=== PATIENT | female | born 1965 | race Caucasian/White ===

== ENCOUNTER → 2020-09-03 12:26 | Outpatient (CLI) | payer MEDICAID, SELFPAY ==
[2020-09-03 13:23] LABS: Coronavirus 19 IgG Antibody Negative (Negative); Coronavirus 19 IgM Antibody Negative (Negative)
== END ==
PROVIDERS: Visit Provider Internal Medicine Gastroenterology
DX: Z01.812 Encounter for preprocedural laboratory examination (principal); Z11.52 Encounter for screening for COVID-19; Z13.810 Encounter for screening for upper gastrointestinal disorder
CPT/HCPCS: 36415; 86328

== ENCOUNTER 2020-09-05 08:37 | Day surgery (SDC) | payer MEDICARE, SELFPAY ==
[2020-09-01 08:26] VITALS: BMI 29.2
[2020-09-05 09:08] VITALS: BP 165/85; PULSE 66; RESP 16; TEMP 36.2; O2SAT 100
[2020-09-05 09:20] LABS: POC Glucose,Bedside 172 (70-110)
[2020-09-05 10:04] VITALS: O2SAT 97
--- NOTE | 2020-09-05 10:06 | P.PN_ITS ---
[facility] Anesthesia Checklist - Structural Data Admitted From: Home Planned Operative Procedure/s: egd Consent for Planned Operative Procedure(s) Verified: Yes - Airway Assessment C-Spine Mobility Assessed: Yes TMJ Mobility Assessed: Yes Dentition: Good Dentition - Neurological Assessment Level of Consciousness: Awake, Alert, Appropriate - Anesthesia Plan Anesthesia Risk discussed: Yes Anesthesia Plan: Verified ASA Class: III Anesthesia Type: MAC [facility] History I have reviewed the patient's past medical history: Yes Medical History: Reports:: Diabetes Mellitus Type 2, Hyperlipidemia, Hypertension, Myocardial Infarction, Seizures Denies:: Cancer, Diabetes Mellitus Type 1, Internal Pacemaker, MRSA *Have you ever received a pneumonia vaccine?: No *Have you received a flu vaccine this season?: No Anesthesia experience/problems:: none Other Surgeries: No: Pacemaker Amputation: No - *Social History Last grade of school completed: High school graduate Smoking Status: Current every day smoker Tobacco Type: cigarettes # Packs/Day (cigarettes): 1 Alcohol Intake: current Alcohol Intake Frequency:: holidays/special occasions only Substance Use Type: crack/cocaine *Occupational Status:: employed, disabled Housing: apartment Household Members: none *Travel in the last 8 weeks: None Family Hx:: Unable to obtain
--- NOTE | 2020-09-05 10:13 | HMH.PROC ---
[facility] Procedure Note Procedure Note:: Upper Endoscopy Procedure Report: Esophagogastroduodenoscopy with cold biopsies Endoscopost: Carlos Alberto Mcqueen II, MD Referring Physician: VALERI Rojas Date of Procedure: September 05, 2020 Equipment: Olympus GIF 190 standard upper endoscope Sedation: MAC sedation Indications: Mrs. Leblanc is a 55-year-old female with longstanding functional dyspepsia and functional bowel disease. The patient was diagnosed with celiac disease years ago. She reports postprandial abdominal pain and discomfort as well as nausea and diarrhea. She has postprandial bowel urgency with cramps and discomfort. More recently, she has had vertigo. She has had marked bloating with constant nausea and some early satiety. She reports heartburn. She reports no melena, hematochezia, bright red rectal bleeding or hematemesis. She reports no weight loss. Her brother and sister have IBS and diverticulitis. The patient did have an ultrasound of the liver showing steatosis (fatty liver). Her HIDA scan on June 17, 2020 showed a 33% gallbladder ejection fraction. She has had normal liver chemistries. She has seen prior gastroenterologists and has had prior panendoscopy in [place]. Procedure: Prior to the procedure, a history and physical exam was performed, and patient's medications and allergies were reviewed. The risks, benefits and alternatives of the sedation and procedure were discussed with the patient. All questions were answered and informed consent was obtained. The patient was brought to the procedure room. Patient identification and proposed procedure were verified by the physician and the nurse. The patient was placed in a left lateral decubitus position and the scope was passed under direct vision. Throughout the procedure, the patient's blood pressure, pulse, and oxygen saturations were monitored continuously. The upper GI endoscopy was accomplished without difficulty. The patient tolerated the procedure well. Findings: The scope was passed directly into the upper esophagus and advanced to the third portion of the duodenum. The post bulbar duodenum and duodenal bulb were normal with normal mucosa and conniventes. There was no evidence of any scalloping of the conniventes or any clear evidence of celiac disease. Cold biopsies were taken from the duodenum. The scope was withdrawn through a normal duodenal bulb and pylorus into the stomach. There was some bile reflux with moderate linear reactive gastropathy of the antrum. The remainder of the body and fundus of the stomach were grossly normal. Upon retroflexion there was a medium size 2 to 3 cm hiatal hernia. 2 biopsies were taken in the antrum and along the lesser curvature for histology to rule out gastritis and/or H pylori. The scope was then withdrawn into the esophagus. There was no evidence of reflux esophagitis or Frost's. There was no Schatzki's ring. There was tertiary contractions and evidence of mild esophageal dysmotility. The remainder of the esophageal mucosa was normal. Impression: 1. Bile reflux with moderate linear reactive gastropathy of the antrum 2. Nonerosive GERD with mild esophageal dysmotility and medium size 2 to 3 cm hiatal hernia Plan: I will follow-up the biopsies. I do feel that the patient has functional dyspepsia. 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 This is resulting in some maldigestion with colonic fermentation causing bowel irregularity, gassiness, bloating and dyspepsia. We will discuss additional treatment options. I do not feel that celiac disease is present based upon duodenal appearance.
[2020-09-05 10:15] VITALS: BP 167/101; PULSE 75; RESP 18; O2SAT 97
[2020-09-05 10:25] VITALS: BP 142/85; PULSE 74; RESP 18; O2SAT 97
[2020-09-05 10:35] VITALS: BP 138/84; PULSE 70; RESP 18
[2020-09-05 10:50] VITALS: BP 115/80; PULSE 77; RESP 18; O2SAT 96
== END 2020-09-05 11:11 | disposition home or self-care (01) ==
PROVIDERS: PCP Family Medicine; Visit Provider Internal Medicine Gastroenterology
PROC: 0DJ08ZZ Inspection of Upper Intestinal Tract, Via Natural or Artificial Opening Endoscopic (ICD-10-PCS; CPT 43235; principal; 2020-09-05 10:00)
DX: K21.9 Gastro-esophageal reflux disease without esophagitis (principal); K31.9 Disease of stomach and duodenum, unspecified; K22.4 Dyskinesia of esophagus; K44.9 Diaphragmatic hernia without obstruction or gangrene; Z83.79 Family history of other diseases of the digestive system; E11.9 Type 2 diabetes mellitus without complications; I10 Essential (primary) hypertension; E78.5 Hyperlipidemia, unspecified; I25.2 Old myocardial infarction; R56.9 Unspecified convulsions; Z72.0 Tobacco use; Z88.0 Allergy status to penicillin
CPT/HCPCS: 43239; 82962; 88305